=== PATIENT | female | born 1960 | race Caucasian/White ===

== ENCOUNTER → 2020-06-25 09:43 | Outpatient (BNVA) | payer MEDICAID, SELFPAY | PROVIDERS: PCP Family Medicine; Referring Provider Family Medicine; Visit Provider Specialist | DX: Z76.89 Persons encountering health services in other specified circumstances (principal); G47.8 Other sleep disorders; F22 Delusional disorders; F17.210 Nicotine dependence, cigarettes, uncomplicated | CPT/HCPCS: 99204 ==